=== PATIENT | male | born 1980 | race Two or more races ===

== ENCOUNTER 2020-07-23 22:19 | Emergency (ER) | payer MEDICAID ==
[~2020-07-23] VITALS: Ht 177.8 cm; Wt 81.6 kg
[2020-07-23] MEDS ORDERED: LORazepam 2MG/ML-1ML VIAL IV ONE (23:00)
[2020-07-23] MEDS ORDERED: LORazepam 2MG/ML-1ML VIAL ONE (23:05)
[2020-07-24] MEDS ORDERED: SODIUM CHLORIDE 0.9% 1,000 ML IV ONE (00:15)
[2020-07-24 00:23] LABS: Basophils # (auto) 0 10 ^3/uL (0-0.2); Basophils % (auto) 0.1 % (0.0-2.0); Eosinophils # (auto) 0 10 ^3/uL (0-0.8); Hematocrit 42.1 % (41.0-53.0); Hemoglobin 14.9 g/dL (13.5-17.5); Lymphocytes # (auto) 0.2 10 ^3/uL (0.4-5.4); Lymphocytes % (auto) 2.4 % (10.0-50.0); Mean Corpuscular Hemoglobin 30.9 pg (28.0-32.0); Mean Corpuscular Hgb Conc. 35.4 g/dL (32.0-36.0); Mean Corpuscular Volume 87.4 fL (80.0-100.0); Monocytes # (auto) 0.7 10 ^3/uL (0-1.3); Monocytes % (auto) 9.2 % (0.0-12.0); Neutrophils # (auto) 6.8 10 ^3/uL (1.6-8.6); Neutrophils % (auto) 88.3 % (37.0-80.0); Red Blood Cells 4.82 10^6/uL (4.5-5.90); Red Cell Distribution Width 14.5 % (11.8-14.3); White Blood Cell 7.7 10^3/uL (4.4-10.8)
[2020-07-24] MEDS ORDERED: ACETAMINOPHEN 500 MG TAB PO ONE (00:30)
[2020-07-24 00:43] LABS: Anion Gap 9 (5-15); BUN/Creatinine Ratio 5.9; Blood Alcohol < 3.0 mg/dL (0-5); Blood Urea Nitrogen 6 mg/dL (7-18); Calcium 8.2 mg/dL (8.5-10.1); Carbon Dioxide 31 mmol/L (21-32); Chloride 93 mmol/L (98-107); GFR African American 105 mL/min; GFR Non-African American 86 mL/min; Glucose 122 mg/dL (74-106); Potassium 3.4 mmol/L (3.5-5.1); Sodium 133 mmol/L (136-145)
[2020-07-24 00:45] LABS: Lactic Acid w/Reflex 2.2 mmol/L (0.4-2.0)
[2020-07-24] MEDS ORDERED: LORazepam 2MG/ML-1ML VIAL IV ONE (01:45)
[2020-07-24 02:28] LABS: Amphetamine Screen, Urine NEGATIVE (NEGATIVE); Barbiturate Scree,Urine NEGATIVE (NEGATIVE); Benzodiazephine Screen, Urine NEGATIVE (NEGATIVE); Cannabinoid Screen, Urine NEGATIVE (NEGATIVE); Cocaine Screen, Urine NEGATIVE (NEGATIVE); Opiate Scree,Urine NEGATIVE (NEGATIVE); Phencyclidine Screen, Urine NEGATIVE (NEGATIVE)
[2020-07-24 04:38] VITALS: BP 133/85
== END 2020-07-24 02:06 | disposition left against medical advice (07) ==
LOC: EDBD 22:19 → ER 22:22
DX: G40.89 Other seizures (principal)
CPT/HCPCS: 36415; 71045; 80048; 80307; 80320; 83605; 85025; 87040; 87086; 93005; 96361; 96374; 96376; 99285; J2060; J7030; 96375

== ENCOUNTER 2020-07-24 08:38 | Emergency (ER) | payer MEDICAID ==
[~2020-07-24] VITALS: Ht 177.8 cm; Wt 95.3 kg
[2020-07-24] MEDS ORDERED: SODIUM CHLORIDE 0.9% 1,000 ML IV ONE ×2 (09:45)
[2020-07-24] MEDS ORDERED: cefTRIAXone 1GM/50ML D5W 50 ML IV ONE (09:45)
[2020-07-24] MEDS ORDERED: LORazepam 2MG/ML-1ML VIAL IV ONE (09:45)
[2020-07-24] MEDS ORDERED: AZITHROMYCIN 500MG/ 250ML 250 ML IV ONE (09:45)
[2020-07-24 10:22] VITALS: BP 146/39
[2020-07-24] MEDS ORDERED: ACETAMINOPHEN 500 MG TAB PO ONE (10:30)
== END 2020-07-24 12:35 | disposition home or self-care (01) ==
LOC: ER 08:38
DX: J18.9 Pneumonia, unspecified organism (principal); R56.9 Unspecified convulsions; E87.6 Hypokalemia; Z20.822 Contact with and (suspected) exposure to COVID-19
CPT/HCPCS: 36415; 87426; 96365; 96366; 96368; 96375; 99284; J0456; J0696; J2060; J7030

== ENCOUNTER 2022-03-07 15:08 | Emergency (ER) | payer MEDICAID ==
[~2022-03-07] VITALS: Ht 177.8 cm; Wt 95.5 kg
[2022-03-07 17:32] VITALS: BP 138/88
[2022-03-07] MEDS ORDERED: IBUP800T27 PO (21:09)
[2022-03-07] MEDS ORDERED: AMOX-277 PO (21:09)
[2022-03-07] MEDS ORDERED: KETOROLAC TROMETH 60MG/2ML VIAL IM ONE (21:15)
[2022-03-07] MEDS ORDERED: BENZOCAINE (DENTAL) 20 % SPRAY 60ML MT ONE (21:15)
== END 2022-03-07 23:10 | disposition home or self-care (01) ==
LOC: ER 15:08
DX: K04.7 Periapical abscess without sinus (principal); F17.200 Nicotine dependence, unspecified, uncomplicated
CPT/HCPCS: 96372; 99283; J1885